=== PATIENT | male | born 1995 | race Caucasian/White ===

== ENCOUNTER 2020-09-08 09:53 | Emergency (ER) | payer OTHER, SELFPAY ==
[2020-09-08 10:09] VITALS: BP 141/82; PULSE 94; RESP 16; TEMP 37.1; O2SAT 98
--- NOTE | 2020-09-08 10:38 | ED.MALEGU ---
HPI - Male Genitourinary General Chief complaint: Urogenital-Male Stated complaint: pain with urination/frequent urination Time Seen by Provider: 09/08/20 10:38 Source: patient and RN notes reviewed Mode of arrival: ambulatory Limitations: no limitations History of Present Illness HPI Narrative: 26-year-old male presents with concern for 1-1/2-day history of urethral burning, throbbing , urgency, left flank pain. Reports urethral throbbing during urination and when not urinating. He denies fever, abdominal pain, nausea, vomiting, malaise, body aches. MD Complaint: dysuria Related Data Home Medications Medication Instructions Recorded Confirmed aripiprazole [Abilify] 5 mg PO DAILY 09/08/20 09/08/20 buspirone [BuSpar] 20 mg PO BID 09/08/20 09/08/20 citalopram [Celexa] 20 mg PO DAILY 09/08/20 09/08/20 divalproex [Depakote] 1,000 mg PO HS 09/08/20 09/08/20 Allergies Allergy/AdvReac Type Severity Reaction Status Date / Time No Known Allergies Allergy Verified 09/08/20 10:19 Review of Systems Review of Systems: Narrative: CONSTITUTIONAL: Denies malaise, chills, sweats, or fever. CARDIOVASCULAR: Denies chest pain, palpitations RESPIRATORY: Denies cough or dyspnea. GASTROINTESTINAL: Denies abdominal pain, nausea, vomiting, diarrhea, bloody, or mucous stools. GENITOURINARY: Reports dysuria urethral pain, urine urgency, left flank pain. Denies urine frequency or hematuria. SKIN: Denies rash or itching. MUSCULOSKELETAL: Denies back pain or myalgia. All systems reviewed & are unremarkable except as noted in HPI and below PMFSH Comments At time of signature, agree with nursing past medical, surgical, social and family history. There is no relevant family history pertinent to the presenting complaint Exam Narrative: Exam Narrative: GENERAL: Well-appearing, well-nourished, and in no acute distress. HEAD: Normocephalic. EYES: PERRLA, conjunctivae clear. NECK: Supple. No lymphadenopathy CHEST: Clear to auscultation. No respiratory distress. HEART: Regular rate and rhythm. ABDOMEN: Soft, nontender upon palpation, nondistended, normal active bowel sounds, no palpable or pulsatile masses, no guarding. No CVA tenderness SKIN: Warm, dry, no rash. NEURO: Alert and oriented x3. PSYCH: Normal mood and affect Course Course Emergency Course: Patient is aware of diagnosis, understands and agrees to treatment plan. Anticipatory guidance given. Patient agrees to follow-up as directed and is aware of reasons to seek care at the emergency department. Portions of this record may have been created with voice recognition software Vital Signs Vital signs: Vital Signs Temperature 98.7 F 09/08/20 10:09 Pulse Rate 94 09/08/20 10:09 Respiratory Rate 16 09/08/20 10:09 Blood Pressure 141/82 H 09/08/20 10:09 Pulse Oximetry 98 09/08/20 10:09 Temperature 98.7 F 09/08/20 10:09 Pulse Rate 94 09/08/20 10:09 Respiratory Rate 16 09/08/20 10:09 Blood Pressure 141/82 H 09/08/20 10:09 Pulse Oximetry 98 09/08/20 10:09 Reviewed. Pt has been instructed to follow up with his primary care provider within the next week regarding his elevated blood pressure today. MDM - Male Genitourinary MDM Narrative Medical decision making narrative: Exam findings and UA show no acute concerns or changes; patient is non-toxic appearing and is in no distress. Patient is appropriate for outpatient treatment and follow-up. Differential Diagnosis Differential diagnosis: Likely urinary tract infection, urethritis, epididymitis and prostatitis Lab Data Attestation: I reviewed the patient's lab results. Labs: Urine Glucose Negative Reference Range: Negative Urine Bilirubin 1+ Reference Range: Negative Urine Ketone Negative Reference Range: Negativ
== END 2020-09-08 10:53 | disposition home or self-care (01) ==
PROVIDERS: Emergency Provider Nurse Practitioner
DX: R30.0 Dysuria (principal); R35.0 Frequency of micturition; F31.9 Bipolar disorder, unspecified; F20.9 Schizophrenia, unspecified
CPT/HCPCS: 81003; 87086; 99213; G0463

== ENCOUNTER 2022-12-19 09:53 | Emergency (ER) | payer OTHER, SELFPAY ==
[2022-12-19 10:02] VITALS: BP 139/102; PULSE 103; RESP 18; TEMP 36.6; O2SAT 97
--- NOTE | 2022-12-19 10:07 | ED.URI ---
HPI - URI/Sore Throat General Chief Complaint: Upper Respiratory Infection Stated Complaint: Sore Throat Source: patient and RN notes reviewed History of Present Illness HPI Narrative: 27-year-old male presents urgent care with complaints of a sore throat x1 week. Patient also reporting congestion or runny nose and states he feels a flap in the back of his throat. Patient states he had a fever yesterday of 102 F but nothing today. Denies any vomiting, diarrhea, chest pain, shortness of breath. Some parts of this dictation were generated by voice recognition software and may contain typographical and/or grammatical inaccuracies. Related Data Home Medications Medication Instructions Recorded Confirmed buspirone 10 mg tablet 15 mg PO DAILY 09/08/20 12/19/22 clonazepam 1 mg tablet 1 mg PO DAILY PRN Anxiety 12/19/22 12/19/22 lamotrigine 150 mg tablet 150 mg PO DAILY 12/19/22 12/19/22 trazodone 100 mg tablet 100 mg PO HS 12/19/22 12/19/22 Allergies Allergy/AdvReac Type Severity Reaction Status Date / Time No Known Allergies Allergy Verified 12/19/22 10:09 Review of Systems Review of Systems: CONSTITUTIONAL: Reports fever yesterday EYES: Denies visual changes, redness, or discharge. ENT: Reports sore throat CARDIOVASCULAR: Denies chest pain, palpitations, or edema. RESPIRATORY: Denies cough or dyspnea. GASTROINTESTINAL: Denies abdominal pain, nausea, vomiting, or diarrhea. GENITOURINARY: Denies dysuria or hematuria. SKIN: Denies rash or itching. MUSCULOSKELETAL: Denies back pain, joint pain, or myalgia. NEUROLOGIC: Denies headache, numbness, or weakness. PMFSH Comments At the time of my signature, I reviewed and agree with the nursing past medical, surgical, social, and family history. There is no relevant family history pertinent to the patient complaint. Exam Narrative: GENERAL: This is a well-nourished, well-developed patient, in no apparent distress. HEAD: normocephalic, atraumatic. EYES: PERRL. Sclera clear/white. Vision is grossly intact. EARS: External ears normal, auditory canals clear and without drainage, TMs normal without perforation. Hearing grossly intact. NOSE: External nose normal with no obvious nasal discharge, nares without redness, no rhinorrhea. THROAT: posterior pharynx erythemic. Uvula is slightly edematous. Tonsils 1+. No exudate. NECK: Neck supple, non-tender without lymphadenopathy, masses or thyromegaly. CARDIOVASCULAR: Regular rate and rhythm without murmurs, gallops, or rubs. RESPIRATORY: Clear to auscultation. Breath sounds equal bilaterally. No wheezes, rales, or rhonchi. GASTROINTESTINAL: Abdomen soft, non-tender, nondistended. Bowel sounds are active. No hepato-splenomegaly, or palpable masses. No guarding. SKIN: warm, intact with no suspicious lesions or rash, good texture and turgor. NEURO: awake, alert, and oriented to person, place and time. There were no obvious focal neurologic abnormalities. Course Course Level of Care: Express Care Visit Vital Signs Vital signs: Vital Signs Temperature 97.9 F 12/19/22 10:02 Pulse Rate 103 H 12/19/22 10:02 Respiratory Rate 18 12/19/22 10:02 Blood Pressure 139/102 H 12/19/22 10:02 Pulse Oximetry 97 12/19/22 10:02 Oxygen Delivery Room Air 12/19/22 10:02 Temperature 97.9 F 12/19/22 10:10 Pulse Rate 103 H 12/19/22 10:10 Respiratory Rate 18 12/19/22 10:10 Blood Pressure 139/102 H 12/19/22 10:10 Pulse Oximetry 97 12/19/22 10:10 Oxygen Delivery Room Air 12/19/22 10:10 Reviewed. MDM - URI/Sore Throat MDM Narrative Medical decision making narrative: After 24 hours on antibiotics throw tooth brush away and start using a new one. Do not share drinks. Take Motrin alternating with Tylenol for pain and fever alternating every 4 hours. Increase fluids, avoid caffeine. Follow up with Primary provider if not getting better this week Patient is informed that they may have pre-hypertensio
[2022-12-19 10:10] VITALS: BP 139/102; PULSE 103; RESP 18; TEMP 36.6; O2SAT 97
== END 2022-12-19 10:19 | disposition home or self-care (01) ==
PROVIDERS: Emergency Provider Nurse Practitioner Family
DX: J02.0 Streptococcal pharyngitis (principal); F41.9 Anxiety disorder, unspecified; F31.9 Bipolar disorder, unspecified
CPT/HCPCS: 87880; 99213; G0463

== ENCOUNTER 2023-10-02 08:54 | Emergency (ER) | payer OTHER, SELFPAY ==
--- NOTE | 2023-10-02 08:59 | ED.ABDPAIN ---
HPI - Abdominal Pain General Chief Complaint: Abdominal Pain Stated Complaint: Abdominal Pain Source: patient and RN notes reviewed History of Present Illness HPI narrative: 28 yo M presents to urgent care with complaints of generalized abdominal cramping and pain. Pt states this started yesterday. Pt states his pain is in both sides of his abdomen and radiates inwards and down to groin. Pt states the severity waxes and wanes. Denies any flank pain, back pain, N/V/D/C, fevers, or chills. Denies any chest pain or SOB. Pt states he had an abdominal infection of unknown origin a few years ago but states the pain was much worse then. Pt states he has a hx of renal stones but this does not feel like those either. Related Data Home Medications Medication Instructions Recorded Confirmed buspirone 10 mg tablet 15 mg PO DAILY 09/08/20 10/02/23 clonazepam 1 mg tablet 1 mg PO DAILY PRN Anxiety 12/19/22 10/02/23 lamotrigine 150 mg tablet 150 mg PO DAILY 12/19/22 10/02/23 trazodone 100 mg tablet 100 mg PO HS 12/19/22 10/02/23 diazepam 5 mg tablet 5 mg PO HS PRN Sleep 10/02/23 10/02/23 metformin 1,000 mg tablet 1,000 mg PO DIRECTED 10/02/23 10/02/23 mirtazapine 30 mg tablet 30 mg PO DIRECTED 10/02/23 10/02/23 olanzapine 15 mg tablet 15 mg PO DIRECTED 10/02/23 10/02/23 Allergies Allergy/AdvReac Type Severity Reaction Status Date / Time No Known Allergies Allergy Verified 10/02/23 09:12 Review of Systems Review of Systems: CONSTITUTIONAL: Denies fever, chills, or sweats. EYES: Denies visual changes, redness, or discharge. ENT: Denies otalgia and sore throat CARDIOVASCULAR: Denies chest pain, palpitations, or edema. RESPIRATORY: Denies cough or dyspnea. GENITOURINARY: Denies dysuria or hematuria. SKIN: Denies rash or itching. MUSCULOSKELETAL: Denies back pain, joint pain, or myalgia. NEUROLOGIC: Denies headache, numbness, or weakness. Pertinent positives per HPI. PMFSH Comments At the time of my signature, I reviewed and agree with the nursing past medical, surgical, social, and family history. There is no relevant family history pertinent to the patient complaint. Exam Narrative: GENERAL: This is a well-nourished, well-developed patient, in no apparent distress. HEAD: normocephalic, atraumatic. EYES: Sclera clear/white. Vision is grossly intact. EARS: External ears normal, auditory canals clear and without drainage. Hearing grossly intact. NOSE: External nose normal with no obvious nasal discharge, nares without redness, no rhinorrhea. THROAT: Mucous membranes moist, posterior pharynx clear. NECK: Neck supple, non-tender without lymphadenopathy, masses or thyromegaly. CARDIOVASCULAR: Regular rate and rhythm without murmurs, gallops, or rubs. RESPIRATORY: Clear to auscultation. Breath sounds equal bilaterally. No wheezes, rales, or rhonchi. GASTROINTESTINAL: Abdomen soft, nondistended. Bowel sounds are hypoactive. No hepato-splenomegaly, or palpable masses. No guarding. Tenderness to all areas of abdomen. SKIN: warm, intact with no suspicious lesions or rash, good texture and turgor. NEURO: awake, alert, and oriented to person, place and time. There were no obvious focal neurologic abnormalities. EXTREMITIES: No clubbing, cyanosis, or edema. No joint tenderness, effusion, or edema noted. BACK: Nontender without deformity or crepitus. No flank tenderness. Course Course Level of Care: Express Care Visit Vital Signs Vital signs: Vital Signs Temperature 99.3 F 10/02/23 09:04 Pulse Rate 90 10/02/23 09:04 Respiratory Rate 20 10/02/23 09:04 Blood Pressure 129/79 10/02/23 09:04 Pulse Oximetry 95 10/02/23 09:04 Oxygen Delivery Room Air 10/02/23 09:04 Temperature 99.3 F 10/02/23 09:04 Pulse Rate 90 10/02/23 09:04 Respiratory Rate 20 10/02/23 09:04 Blood Pressure 129/79 10/02/23 09:04 Pulse Oximetry 95 10/02/23 09:04 Oxygen Delivery Room Air 10/02/23 09:04
[2023-10-02 09:04] VITALS: BP 129/79; PULSE 90; RESP 20; TEMP 37.4; O2SAT 95
== END 2023-10-02 09:50 | disposition home or self-care (01) ==
PROVIDERS: Emergency Provider Nurse Practitioner Family
DX: K52.9 Noninfective gastroenteritis and colitis, unspecified (principal); F41.9 Anxiety disorder, unspecified; F31.9 Bipolar disorder, unspecified; F20.9 Schizophrenia, unspecified
CPT/HCPCS: 99213; G0463

== ENCOUNTER 2024-09-20 08:06 | Emergency (ER) | payer OTHER, SELFPAY ==
[2024-09-20 08:12] VITALS: BP 133/86; PULSE 108; RESP 20; TEMP 37.6; O2SAT 97
--- NOTE | 2024-09-20 08:27 | ED.GENADULT ---
HPI - General Adult General Chief complaint: Upper Respiratory Infection Stated complaint: chest cold/fever Source: patient Mode of arrival: ambulatory Limitations: no limitations History of Present Illness HPI narrative: Patient presents for evaluation of a cough since yesterday. Cough is mild and nonproductive. He noted a temperature of 101.2? F home yesterday. He took ibuprofen. He also tried some elli-wdx-jawyfch antitussive. His symptoms improved with both medications. No chills, nausea, vomiting, diarrhea, shortness of breath, otalgia, sore throat. His son recently had a cough. He came in today because he wanted to make sure he was not having a crisis . Related Data Home Medications Medication Instructions Recorded Confirmed buspirone 10 mg tablet 15 mg PO DAILY 09/08/20 10/02/23 clonazepam 1 mg tablet 1 mg PO DAILY PRN Anxiety 12/19/22 10/02/23 lamotrigine 150 mg tablet 150 mg PO DAILY 12/19/22 10/02/23 trazodone 100 mg tablet 100 mg PO HS 12/19/22 10/02/23 diazepam 5 mg tablet 5 mg PO HS PRN Sleep 10/02/23 10/02/23 metformin 1,000 mg tablet 1,000 mg PO DIRECTED 10/02/23 10/02/23 mirtazapine 30 mg tablet 30 mg PO DIRECTED 10/02/23 10/02/23 olanzapine 15 mg tablet 15 mg PO DIRECTED 10/02/23 10/02/23 Allergies Allergy/AdvReac Type Severity Reaction Status Date / Time No Known Allergies Allergy Verified 10/02/23 09:12 Review of Systems Review of Systems: CONSTITUTIONAL: Reports fever. Denies chills, or sweats. EYES: Denies visual changes, redness, or discharge. ENT: Denies rhinorrhea, congestion, sore throat, or otalgia. CARDIOVASCULAR: Denies chest pain, palpitations, or edema. RESPIRATORY: Reports cough. Denies dyspnea. GASTROINTESTINAL: Denies abdominal pain, nausea, vomiting, or diarrhea. GENITOURINARY: Denies dysuria or hematuria. SKIN: Denies rash or itching. MUSCULOSKELETAL: Denies back pain, joint pain, or myalgia. NEUROLOGIC: Denies headache, numbness, dizziness, or weakness. PSYCHIATRIC: Denies anxiety or depression. [facility] Past Medical History Medical History Anxiety Depression, psychotic Surgical History Surgical History No pertinent past surgical history Family History Family History Mother Family history non-contributory Social History Social History Smoking status: Never smoker Substance use: never Occupation/Education: student Gender identity (if verbalized by the patient): Male Spiritual care concerns: No Exam Narrative: GENERAL: Well-appearing, well-nourished, and in no acute distress. HEAD: Normocephalic, atraumatic. EYES: PERRLA and EOMI. ENT: Nares clear, no rhinorrhea or epistaxis. Mucous membranes moist. Oropharynx without tonsillar hypertrophy exudate or other lesions. Bilateral TMs pearly tapia nonbulging NECK: Supple. No adenopathy or masses. No carotid bruits or JVD CHEST: Clear to auscultation. No respiratory distress. No wheezes rales or rhonchi HEART: Regular rate and rhythm. No murmur heard. Normal peripheral pulses. ABDOMEN: Soft, nontender, nondistended, normal active bowel sounds. EXTREMITIES: Normal range of motion. No edema. SKIN: Warm, dry, no rash. NEURO: No focal deficits. Alert and oriented x3. PSYCH: Normal mood and affect. Course Course Emergency Course: This is a 29-year-old male who presented for evaluation of a cough and fever. He had no adventitious lung sounds warranting imaging. His exam is consistent with acute viral syndrome. Increase hydration. Yyzi-cpe-xfiyymi cough and cold medications. Tylenol and ibuprofen for fever. Follow up with primary provider. Go to the ER for worsening symptoms. Patient in agreement with plan of care. Level of Care: Express Care Visit Vital Signs Vital signs: Vital Signs Temperature 37.6 C H 09/20/24 08:12 Pulse Rate 108 H 09/20/24 08:12 Respiratory Rate 20 09/20/24 08:12 Blood Pressure 133/86 09/20/24 08:12 Pulse Oximetry 97 09/20/24 08:12 Oxygen Delivery Room Air 09/20/24 08:12 Temperature 37.6 C H 09/20/24 08:12 Pulse Rate 108 H 09/20/24 08:12 Respiratory Rate 20 09/20/24 08:12 Blood Pressure 133/86 09/20/24 08:12 Pulse Oximetry 97 09/20/24 08:12 Oxygen Delivery Room Air 09/20/24 08:12 Medical Decision Making Vital Signs Vital Signs: Vital Signs Temperature 37.6 C H 09/20/24 08:12 Pulse Rate 108 H 09/20/24 08:12 Respiratory Rate 20 09/20/24 08:12 Blood Pressure 133/86 09/20/24 08:12 Pulse Oximetry 97 09/20/24 08:12 Oxygen Delivery Room Air 09/20/24 08:12 Temperature 37.6 C H 09/20/24 08:12 Pulse Rate 108 H 09/20/24 08:12 Respiratory Rate 20 09/20/24 08:12 Blood Pressure 133/86 09/20/24 08:12 Pulse Oximetry 97 09/20/24 08:12 Oxygen Delivery Room Air 09/20/24 08:12 Discharge Plan Discharge Clinical Impression: Viral illness Patient Disposition: Home, Self-Care Condition: Stable Instructions: Antibiotic Form, Viral Syndrome (ED) Additional Instructions: YOU MAY TAKE OVER THE COUNTER COUGH AND COLD MEDICATION FOR YOUR SYMPTOMS INCREASE HYDRATION Patient Language: Luxembourgish Prescriptions: No Action buspirone [BuSpar] 10 mg Tablet 15 mg PO DAILY lamotrigine 150 mg Tablet 150 mg PO DAILY clonazepam 1 mg Tablet 1 mg PO DAILY PRN (Reason: Anxiety) trazodone 100 mg Tablet 100 mg PO HS mirtazapine 30 mg tablet 30 mg PO DIRECTED metformin 1,000 mg tablet 1,000 mg PO DIRECTED olanzapine 15 mg tablet 15 mg PO DIRECTED diazepam 5 mg Tablet 5 mg PO HS PRN (Reason: Sleep) dicyclomine 20 mg tablet 20 mg PO TID PRN (Reason: abdominal cramping) Qty: 14 0RF Follow-up/Referrals: Chao Dumas MD [Physician] - Time of Disposition: 08:25
== END 2024-09-20 08:30 | disposition home or self-care (01) ==
PROVIDERS: Emergency Provider Nurse Practitioner
DX: B34.9 Viral infection, unspecified (principal); F41.9 Anxiety disorder, unspecified; F32.A Depression, unspecified
CPT/HCPCS: 99211; G0463

== ENCOUNTER 2025-01-06 12:50 | Emergency (ER) | payer OTHER, SELFPAY ==
[2025-01-06 13:14] VITALS: BP 134/92; PULSE 92; RESP 20; TEMP 36.8; O2SAT 97
[2025-01-06 14:10] LABS: EDUAAPPEAR Clear; EDUABILI Negative (Negative); EDUABLOOD Negative (Negative); EDUACOLOR1 Yellow; EDUAGLUCOSE Negative (Negative); EDUAKETONE Negative (Negative); EDUALEUKO Negative (Negative); EDUANITRATE Negative (Negative); EDUAPROTEIN Negative (Negative); EDUAUROBILI 0.2
--- NOTE | 2025-01-06 14:58 | ED.MALEGU ---
HPI - Male Genitourinary General Chief complaint: Urogenital-Male Stated complaint: Poss UTI Time Seen by Provider: 01/06/25 14:35 Source: patient, RN notes reviewed and old records reviewed Mode of arrival: ambulatory Limitations: no limitations History of Present Illness HPI Narrative: 29 year old male presents to express care with complaints of burning with urination which started last night and pressure sensation when he urinates. Patient reports that he has noted some urinary frequency also. Patient reports that he has had UTI in the past and wants to be well because is having baby in 2 days and he needs to be well to help her. Patient reports that he has had a kidney stone in past. Patient denies any fevers, chills or sweats, denies any nausea or vomiting. Patient reports no concern for STD exposure. MD Complaint: dysuria and other (urinary burning and frequency,) Onset (ago): day(s) (day 2 of symptoms) Severity scale (1-10): 5 Related Data Home Medications ?Medication ?Instructions ?Recorded ?Confirmed ?Last Taken ?Type clonazepam 1 mg tablet 1 mg PO DAILY PRN Anxiety 12/19/22 10/02/23 Unknown History lamotrigine 150 mg tablet 150 mg PO DAILY 12/19/22 10/02/23 Unknown History trazodone 100 mg tablet 100 mg PO HS 12/19/22 10/02/23 Unknown History metformin 1,000 mg tablet 1,000 mg PO DIRECTED 10/02/23 10/02/23 Unknown History mirtazapine 30 mg tablet 30 mg PO DIRECTED 10/02/23 10/02/23 Unknown History lamotrigine 200 mg tablet mg 01/06/25 Unknown History risperidone 1 mg tablet mg 01/06/25 Unknown History Allergies Allergy/AdvReac Type Severity Reaction Status Date / Time No Known Allergies Allergy Verified 01/06/25 13:54 Review of Systems Review of Systems: CONSTITUTIONAL: Denies fever, chills, or sweats. CARDIOVASCULAR: Denies chest pain, palpitations, or edema. RESPIRATORY: Denies cough or dyspnea. GASTROINTESTINAL: Denies abdominal pain, nausea, vomiting, or diarrhea. GENITOURINARY: Reports dysuria, frequency, urgency. Denies flank pain or hematuria. SKIN: Denies rash or itching. MUSCULOSKELETAL: Denies back pain or myalgia. Denies CVA tenderness NEUROLOGIC: Denies headache All systems reviewed & are unremarkable except as noted in HPI and below PMFSH Past Medical History Medical History Fracture of right upper extremity Kidney stone Diabetes Depression, psychotic Anxiety Surgical History Surgical History History of tonsillectomy and adenoidectomy Family History Family History Mother Family history non-contributory Social History Social History Smoking status: Never smoker Substance use: never Occupation/Education: student Gender identity (if verbalized by the patient): Male Spiritual care concerns: No Comments At time of signature, agree with nursing past medical, surgical, social and family history. There is no relevant family history pertinent to the presenting complaint Exam Narrative: GENERAL: Well-appearing, well-nourished, and in no acute distress. HEAD: Normocephalic, atraumatic. NECK: Supple. no lymphadenopathy CHEST: Clear to auscultation. No respiratory distress.SAO2 97% on room air HEART: Regular rate and rhythm. No murmur heard. Normal peripheral pulses. ABDOMEN: Soft, nontender to palpation,, nondistended, normal active bowel sounds. No CVA tenderness, reports burning with urination and frequency EXTREMITIES: Normal range of motion. No edema. SKIN: Warm, dry, no rash. NEURO: No focal deficits. Alert and oriented x3. Course Course Emergency Course: Patient is aware of diagnosis, understands and agrees to treatment plan.? Anticipatory guidance given.? Patient agrees to follow-up as directed and is aware of reasons to seek care at the emergency department. Portions of this record may have been created with voice recognition software Level of Care: Express Care Visit Vital Signs Vital signs: Vital Signs Temperature 36.8 C 01/06/25 13:14 Pulse Rate 92 01/06/25 13:14 Respiratory Rate 20 01/06/25 13:14 Blood Pressure 134/92 H 01/06/25 13:14 Pulse Oximetry 97 01/06/25 13:14 Oxygen Delivery Room Air 01/06/25 13:14 Temperature 36.8 C 01/06/25 13:14 Pulse Rate 92 01/06/25 13:14 Respiratory Rate 20 01/06/25 13:14 Blood Pressure 134/92 H 01/06/25 13:14 Pulse Oximetry 97 01/06/25 13:14 Oxygen Delivery Room Air 01/06/25 13:14 MDM - Male Genitourinary Differential Diagnosis Differential diagnosis: Likely urinary tract infection, urethritis and other (dysuria and urinary frequency,cystitis) Medical Records Attestation: I reviewed the patient's medical records. Lab Data Attestation: I reviewed the patient's lab results. Lab results narrative: Glucose negative, bilirubin negative, ketone negative, specific gravity 1.020, blood negative pH 7.0, protein negative, urobilinogen 0 2, nitrate negative, leukocyte negative Labs: Lab Results 01/06/25 Range/Units 13:40 POC Urine Color Yellow POC Urine Clarity Clear POC Urine pH 7.0 POC Ur Specif [place] 1.020 POC Urine Protein Negative (Negative) POC Ur Glucose (UA) Negative (Negative) POC Urine Ketones Negative (Negative) POC Urine Blood Negative (Negative) POC Urine Nitrite Negative (Negative) POC Urine Bilirubin Negative (Negative) POC Urine Urobilinogen 0.2 POC U Leukocyte Esteras Negative (Negative) Critical Care Time Critical Care Time Critical Care Time: No Discharge Plan Discharge Clinical Impression: Burning with urination Patient Disposition: Home, Self-Care Condition: Stable Instructions: Antibiotic Form, Dysuria (ED) Additional Instructions: Increase fluids especially cranberry juice and water Avoid caffeine and carbonated beverages Antibiotic as directed Tylenol/ibuprofen for pain or fever Follow-up with her primary care provider if further problems or concerns Recheck if you have fever over 101, nausea and vomiting. If your symptoms persist, change or worsen significantly before you can contact your personal physician then please, without delay, go to the emergency department for further evaluation. Follow-up with PCP in 7-10 days or sooner if needed Follow up with PCP soon in regards to your blood pressure which is elevated above threshold for referral. Blood pressure above 120/80 may indicate pre-hypertension. 134/92 Patient Language: Croatian Prescriptions: New sulfamethoxazole-trimethoprim [Bactrim DS] 800-160 mg tablet 1 tablet PO Q12H Qty: 6 0RF No Action lamotrigine 200 mg tablet risperidone 1 mg tablet lamotrigine 150 mg Tablet 150 mg PO DAILY clonazepam 1 mg Tablet 1 mg PO DAILY PRN (Reason: Anxiety) trazodone 100 mg Tablet 100 mg PO HS mirtazapine 30 mg tablet 30 mg PO DIRECTED metformin 1,000 mg tablet 1,000 mg PO DIRECTED Follow-up/Referrals: PHYSICIAN,REVIVAL CLERK [Primary Care Provider] - Time of Disposition: 15:03 Quality [place] Coma Scale Eyes: Open Verbal: Oriented and Alert Motor: Follows Commands [place] Coma Total Score: 15
== END 2025-01-06 15:07 | disposition home or self-care (01) ==
PROVIDERS: Emergency Provider Registered Nurse
DX: R30.0 Dysuria (principal); E11.9 Type 2 diabetes mellitus without complications; F41.8 Other specified anxiety disorders
CPT/HCPCS: 81003; 87086; 99213; G0463